=== PATIENT | female | born 1980 | race American Indian/Alaskan Native ===

== ENCOUNTER 2019-01-18 19:48 | Emergency (ER) | payer OTHER ==
[2019-01-18 20:07] VITALS: BP 132/81
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
[2019-01-18] MEDS ORDERED: FLEXERIL PO ONE (22:17)
[2019-01-18] MEDS ORDERED: TORADOL IM ONE (22:17)
== END 2019-01-18 22:42 | disposition home or self-care (01) ==
LOC: ED 19:48
DX: M54.2 Cervicalgia (principal); V49.59XA Passenger injured in collision with other motor vehicles in traffic accident, initial encounter; Y93.89 Activity, other specified; Y92.410 Unspecified street and highway as the place of occurrence of the external cause; Y99.8 Other external cause status
CPT/HCPCS: 72040; 96372; 99283; J1885